=== PATIENT | male | born 1930 | race Caucasian/White ===

== ENCOUNTER 2017-03-14 15:36 | Emergency (ER) | payer MEDICARE, BC ==
[2017-03-14 15:59] VITALS: BP 113/73
--- NOTE | 2017-03-14 16:22 | EDM.PDOC ---
[id number]: SOB Time Seen by Provider: 03/14/17 16:05 Source of Information: Reports: Patient, Family History Limitations: Reports: No Limitations - History of Present Illness INITIAL COMMENTS - FREE TEXT/NARRATIVE: 87-year-old male was walking around the house for exercise today, the last lap he went very briskly, then went into the house and started to feel dizzy and woozy, and ultimately collapsed to the floor. He did not lose consciousness, the nurses found him sitting on the floor and he looked pale and somewhat diaphoretic. He was not complaining of pain but did have some mild shortness of breath. The nurses finally convinced him to go get checked out a couple hours later, he feels fine. He went into the clinic and was found to be in atrial fibrillation so they sent him to the emergency room. His rate is excellent. He has no nausea or vomiting. He is on aspirin and plavix, no history of atrial fibrillation in the past. Onset: Unknown/Unsure Severity: Moderate Associated Symptoms: Reports: Syncope, Weakness - Related Data Allergies Allergy/AdvReac Type Severity Reaction Status Date / Time No Known Allergies Allergy Verified 03/14/17 15:58 Home Meds: Home Meds Aspirin [Isabella Chewable Aspirin] 81 mg PO DAILY 07/11/14 [History] Carvedilol [Coreg] 12.5 mg PO BID 07/11/14 [History] Hydrochlorothiazide [Microzide] 12.5 mg PO DAILY 07/11/14 [History] Lisinopril [Zestril] 10 mg PO DAILY 07/11/14 [History] Multivitamin [Multi-Vitamin Daily] 1 each PO DAILY 07/11/14 [History] Nitroglycerin [Nitrostat] 0.4 mg SL ASDIRECTED 07/11/14 [History] metFORMIN [Glucophage] 1,000 mg PO BIDM 07/11/14 [History] Isosorbide Mononitrate [Imdur] 30 mg PO DAILY 04/06/16 [History] Lisinopril 20 mg PO BEDTIME 04/06/16 [History] Tamsulosin [Flomax] 0.4 mg PO DAILY 04/06/16 [History] atorvaSTATin [Lipitor] 40 mg PO BEDTIME 04/06/16 [History] Ibuprofen [Ibuprofen Ib] 800 mg PO Q6H 04/14/16 [History] Furosemide [Lasix] 40 mg PO DAILY 09/07/16 [History] Acetaminophen [Pain & Fever] 325 - 650 mg PO DAILY PRN 09/09/16 [History] Calcium Carbonate [Tums] 1,000 mg PO DAILY PRN 09/09/16 [History] Magnesium Hydroxide [Milk of Magnesia] 30 ml PO DAILY PRN 09/09/16 [History] Omeprazole 20 mg PO DAILY 09/09/16 [History] guaiFENesin [Robitussin] 100 mg PO Q6H PRN #240 ml 09/09/16 [Rx] Past Medical History HEENT History: Reports: Hard of Hearing, Impaired Vision Cardiovascular History: Reports: CAD, Heart Failure, High Cholesterol, Hypertension, [place], Stents Respiratory History: Reports: Pneumonia, Recurrent, SOB Genitourinary History: Reports: BPH, Prostate Disorder, Urinary Incontinence Neurological History: Reports: Concussion Other Neuro History: 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 Endocrine/Metabolic History: Reports: Diabetes, Type II Hematologic History: Reports: Blood Transfusion(s) Oncologic (Cancer) History: Reports: Prostate - Infectious Disease History Infectious Disease History: Reports: Chicken Pox, Measles, Shingles - Past Surgical History HEENT Surgical History: Reports: Cataract Surgery, Tonsillectomy Cardiovascular Surgical History: Reports: Coronary Artery Bypass, Coronary Artery Stent Social & Family History - Family History Family Medical History: Unobtainable - Tobacco Use Smoking Status *Q: Never Smoker Second Hand Smoke Exposure: No - Caffeine Use Caffeine Use: Reports: Coffee - Alcohol Use Days Per Week of Alcohol Use: 0 - Recreational Drug Use Recreational Drug Use: No ED ROS GENERAL - Review of Systems Review Of Systems: See Below Constitutional: Denies: Fever, Chills HEENT: Reports: No Symptoms Respiratory: Reports: No Symptoms Cardiovascular: Reports: No Symptoms GI/Abdominal: Reports: No Symptoms. Denies: Nausea, Vomiting : Reports: No Symptoms Skin: Reports: Pallor, Diaphoresis Neurological: Reports: Syncope Psychiatric: Reports: No Symptoms ED EXAM, GENERAL - Physical Exam Exam: See Below Exam Limited By: No Limitations General Appearance: Alert, No Apparent Distress Eye Exam: Bilateral Eye: EOMI Throat/Mouth: Normal Inspection Respiratory/Chest: No Respiratory Distress, Lungs Clear Cardiovascular: Irregularly Irregular. No: Bradycardia, Tachycardia GI/Abdominal: Soft, Non-Tender Extremities: Pedal Edema (Patient has just a trace of ankle edema, symmetric) Neurological: Alert, Oriented, No Motor/Sensory Deficits (Patient is hard of hearing) Psychiatric: Normal Affect, Normal Mood Skin Exam: Warm, Dry Course - Vital Signs Last Recorded V/S: Last Vital Signs Temp 96.4 F 03/14/17 15:55 Pulse 67 03/14/17 15:55 Resp 20 03/14/17 15:55 BP 113/73 03/14/17 15:55 Pulse Ox 98 03/14/17 15:55 - Re-Assessments/Exams Free Text/Narrative Re-Assessment/Exam: 03/14/17 16:22 EKG and labs were already done at the clinic, chest x-ray was not. This was ordered. 03/14/17 17:32 EKG and labs were reviewed, troponin was 0. Chest x-ray shows a very small amount of congestive heart failure along with cardiomegaly which is chronic. His atrial fib persisted but his rate continued to be well controlled. I discussed his symptoms with the patient and his family, and Dr. Waters of the hospitalist service and they requested to go home without any further treatment as long as he feels okay. He will continue his regular medications and return if worsening or concerns. Departure - Departure Time of Disposition: 17:48 Disposition: Home, Self-Care 01 Condition: Good Clinical Impression: Near syncope Atrial fibrillation Qualifiers: Atrial fibrillation type: unspecified Qualified Code(s): I48.91 - Unspecified atrial fibrillation - Discharge Information Instructions: Atrial Fibrillation, [id number] Referrals: Chino Hurst MD [Primary Care Provider] - Forms: ED Department Discharge Care Plan Goals: Continue your current medications. Avoid extra salt intake, and return any time if increasing shortness of breath, chest pain, or other concerning symptoms.
--- NOTE | 2017-03-15 08:35 | CR ---
Chest 2V HISTORY: dyspnea COMPARISON: 09/09/2016 FINDINGS: Mild cardiomegaly is similar to the prior exam. Old median sternotomy changes are noted. Infiltrates at the right lung base seen previously have improved. There is mild interstitial prominence. No ple ural fluid is seen. Severe pulmonary vasculature is borderline prominent. No new infiltrate is ident ified. IMPRESSION: Cardiomegaly with borderline pulmonary congestive changes. Recommend clinical correlation for signs of early CHF or fluid overload. Old median sternotomy changes are again noted.
== END 2017-03-14 17:48 | disposition home or self-care (01) ==
LOC: JP.ED 15:36
DX: R55 Syncope and collapse (principal); I48.91 Unspecified atrial fibrillation; I25.2 Old myocardial infarction; I10 Essential (primary) hypertension; E78.00 Pure hypercholesterolemia, unspecified; I11.0 Hypertensive heart disease with heart failure; I50.9 Heart failure, unspecified; I25.10 Atherosclerotic heart disease of native coronary artery without angina pectoris; E11.9 Type 2 diabetes mellitus without complications; Z85.46 Personal history of malignant neoplasm of prostate; Z95.1 Presence of aortocoronary bypass graft; Z95.5 Presence of coronary angioplasty implant and graft; Z98.49 Cataract extraction status, unspecified eye; Z98.890 Other specified postprocedural states; Z79.82 Long term (current) use of aspirin; Z79.84 Long term (current) use of oral hypoglycemic drugs; Z79.899 Other long term (current) drug therapy
CPT/HCPCS: 71020; 71020-26; 99284; 99285-25

== ENCOUNTER 2017-03-17 22:30 | Observation (INO) | payer MEDICARE, BC ==
--- NOTE | 2017-03-17 23:28 | EDM.PDOC ---
[id number]: SOB Time Seen by Provider: 03/17/17 22:40 Source of Information: Reports: Patient, Family History Limitations: Reports: No Limitations - History of Present Illness INITIAL COMMENTS - FREE TEXT/NARRATIVE: 87-year-old male who has had increasing shortness of breath, decrease activity tolerance over the past week and a half. He was seen 5 days ago in the clinic and ultimately sent over to the emergency room with newly diagnosed atrial fibrillation after a syncopal episode. His rate was well controlled, he was not in significant failure at that time and it was felt there was no need for hospitalization. 2 days later he was rechecked in the clinic and appeared to be worsening, he was hypotensive and had less activity tolerance. He was started on Coumadin, his Lasix was increased and his Lotensin decreased. Despite the medication changes he feels even more short of breath today, he is having increasing lower extremity edema and significant nocturnal dyspnea and orthopnea. Denies any pain. Onset: Gradual (Over the past week and a half) Severity: Moderate Worsens with: Reports: Other (Lying down or activity causes increased shortness of breath) Associated Symptoms: Reports: Malaise, Shortness of Breath, Weakness. Denies: Fever/Chills, Nausea/Vomiting Treatments HOME HEALTH AID: Reports: Other (see below) (Recent medication changes as per history of present illness) - Related Data Allergies Allergy/AdvReac Type Severity Reaction Status Date / Time No Known Allergies Allergy Verified 03/17/17 22:36 Home Meds: Home Meds Aspirin [Isabella Chewable Aspirin] 81 mg PO DAILY 07/11/14 [History] Hydrochlorothiazide [Microzide] 12.5 mg PO DAILY 07/11/14 [History] Multivitamin [Multi-Vitamin Daily] 1 each PO DAILY 07/11/14 [History] Nitroglycerin [Nitrostat] 0.4 mg SL ASDIRECTED 07/11/14 [History] metFORMIN [Glucophage] 1,000 mg PO BIDM 07/11/14 [History] Isosorbide Mononitrate [Imdur] 30 mg PO DAILY 04/06/16 [History] Lisinopril 20 mg PO DAILY 04/06/16 [History] Tamsulosin [Flomax] 0.4 mg PO DAILY 04/06/16 [History] atorvaSTATin [Lipitor] 40 mg PO BEDTIME 04/06/16 [History] Ibuprofen [Ibuprofen Ib] 400 mg PO Q6H 04/14/16 [History] Acetaminophen [Pain & Fever] 325 - 650 mg PO DAILY PRN 09/09/16 [History] Calcium Carbonate [Tums] 1,000 mg PO DAILY PRN 09/09/16 [History] Magnesium Hydroxide [Milk of Magnesia] 30 ml PO DAILY PRN 09/09/16 [History] Omeprazole 20 mg PO DAILY 09/09/16 [History] guaiFENesin [Robitussin] 100 mg PO Q6H PRN #240 ml 09/09/16 [Rx] Bacitracin/Neomycin/Polymyxin [Neosporin Oint] 1 applic TOP ASDIRECTED PRN 03/17 [History] Phenol [Cepastat] 1 montez MUCMEM ASDIRECTED PRN 03/17/17 [History] Warfarin [Coumadin] 5 mg PO DAILY 03/17/17 [History] diphenhydrAMINE [Benadryl] 25 mg PO Q4H PRN 03/17/17 [History] Carvedilol [Coreg] 6.25 mg PO BID #60 tablet 03/19/17 [Rx] Furosemide 40 mg PO DAILY #30 tablet 03/19/17 [Rx] Past Medical History HEENT History: Reports: Hard of Hearing, Impaired Vision Cardiovascular History: Reports: Afib, CAD, Heart Failure, High Cholesterol, Hypertension, [place], Stents Other Cardiovascular History: new afib this monday03/14/17 Respiratory History: Reports: Pneumonia, Recurrent, SOB Genitourinary History: Reports: BPH, Prostate Disorder, Urinary Incontinence Musculoskeletal History: Reports: Back Pain, Chronic Neurological History: Reports: Concussion, Head Trauma Other Neuro History: 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 Endocrine/Metabolic History: Reports: Diabetes, Type II Hematologic History: Reports: Blood Transfusion(s) Oncologic (Cancer) History: Reports: Prostate - Infectious Disease History Infectious Disease History: Reports: Chicken Pox, Shingles - Past Surgical History Head Surgeries/Procedures: Reports: Craniotomy HEENT Surgical History: Reports: Cataract Surgery, Tonsillectomy Cardiovascular Surgical History: Reports: Coronary Artery Bypass, Coronary Artery Stent Social & Family History - Family History Family Medical History: Unobtainable - Tobacco Use Smoking Status *Q: Never Smoker Second Hand Smoke Exposure: No - Caffeine Use Caffeine Use: Reports: Coffee - Alcohol Use Days Per Week of Alcohol Use: 0 - Recreational Drug Use Recreational Drug Use: No ED ROS GENERAL - Review of Systems Review Of Systems: See Below Constitutional: Reports: Malaise, Weakness. Denies: Fever, Chills HEENT: Reports: No Symptoms Respiratory: Reports: Shortness of Breath, Cough. Denies: Pleuritic Chest Pain Cardiovascular: Reports: Blood Pressure Problem (Blood pressure medications were recently changed due to hypotension), Syncope (Had an episode of syncope last week) Endocrine: Reports: Fatigue GI/Abdominal: Denies: Abdominal Pain, Nausea, Vomiting Skin: Reports: Pallor Neurological: Reports: Syncope, Weakness. Denies: Headache Psychiatric: Reports: Anxiety (Becomes anxious when he is short of breath) ED EXAM, GENERAL - Physical Exam Exam: See Below Exam Limited By: No Limitations General Appearance: Alert, Anxious, Mild Distress (Gets dyspneic just transferring from the chair to the exam bed) Head: Atraumatic Neck: Normal Inspection Respiratory/Chest: Decreased Breath Sounds (Marked decreased breath sounds at the bases especially on the left), Rales (Rales at the bases bilaterally) Cardiovascular: Irregularly Irregular GI/Abdominal: Soft, Non-Tender Extremities: Pedal Edema (Symmetric 1+ pedal edema at both ankles) Neurological: Alert, Oriented Psychiatric: Flat Affect Skin Exam: Warm, Dry, Pallor (Patient appears to have a small amount of pallor compared to his appearance 5 days ago) Course - Vital Signs Last Recorded V/S: Last Vital Signs Temp 95.8 F 03/19/17 07:02 Pulse 74 03/19/17 09:55 Resp 18 03/19/17 07:02 BP 133/83 03/19/17 09:55 Pulse Ox 95 03/19/17 07:02 - Orders/Labs/Meds Labs: Laboratory Tests 03/17/17 03/17/17 Range/Units 23:30 23:30 WBC 8.5 (4.5-11.0) K/uL RBC 3.99 L (4.30-5.90) M/uL Hgb 11.6 L (12.0-15.0) g/dL Hct 33.3 L (40.0-54.0) % MCV 84 (80-98) fL MCH 29 (27-31) pg MCHC 35 (32-36) % Plt Count 239 (150-400) K/uL Neut % (Auto) 71 H (36-66) % Lymph % (Auto) 19 L (24-44) % Camp % (Auto) 8 H (2-6) % Eos % (Auto) 2 (2-4) % Baso % (Auto) 0 (0-1) % Sodium 127 L (140-148) mmol/L Potassium 4.2 (3.6-5.2) mmol/L Chloride 92 L (100-108) mmol/L Carbon Dioxide 26 (21-32) mmol/L Anion Gap 13.2 (5.0-14.0) mmol/L BUN 21 H (7-18) mg/dL Creatinine 1.0 (0.8-1.3) mg/dL Est Cr Clr Drug Dosing 57.12 mL/min Estimated GFR (MDRD) > 60 (>60) Glucose 138 H (74-106) mg/dL Calcium 9.1 (8.5-10.1) mg/dL Meds: Medications Discontinued Medications Generic Name Dose Route Start Last Admin Trade Name Freq PRN Reason Stop Dose Admin Aspirin 81 mg 03/18/17 09:00 03/19/17 08:27 Aspirin PO 81 mg DAILY ERLIN Administration Atorvastatin Calcium 40 mg 03/18/17 21:00 03/18/17 21:36 Lipitor PO 40 mg BEDTIME ERLIN Administration Carvedilol 12.5 mg 03/18/17 09:00 03/18/17 09:22 Coreg PO 12.5 mg BID ERLIN Administration Carvedilol 6.25 mg 03/19/17 09:00 03/19/17 09:55 Coreg PO 6.25 mg BID ERLIN Administration Dextrose 15 gm 03/18/17 12:11 Glutose 15 PO ONETIME PRN Hypoglycemia Dextrose/Water 50 ml 03/18/17 12:11 Dextrose 50% In Water IV ONETIME PRN Hypoglycemia Furosemide 40 mg 03/18/17 00:10 03/18/17 00:28 Lasix IVPUSH 03/18/17 00:11 40 mg ONETIME ONE Administration Furosemide 20 mg 03/18/17 09:00 03/18/17 09:23 Lasix IVPUSH 03/18/17 09:01 20 mg NOW ONE Administration Furosemide 20 mg 03/18/17 19:00 03/19/17 07:37 Lasix IVPUSH 20 mg Q12H ERLIN Administration Insulin Aspart 0 unit 03/18/17 12:15 03/19/17 07:59 Novolog SUBCUT 1 units ASDIRECTED PRN Administration LOW DOSE SLIDING SCALE Protocol Isosorbide Mononitrate 30 mg 03/18/17 09:00 03/19/17 08:28 Imdur PO 30 mg DAILY ERLIN Administration Lisinopril 20 mg 03/18/17 09:00 03/19/17 08:28 Prinivil PO 20 mg DAILY ERLIN Administration Melatonin 9 mg 03/18/17 21:00 03/18/17 21:35 Melatonin PO 9 mg BEDTIME ERLIN Administration Metformin HCl 1,000 mg 03/18/17 12:15 03/19/17 08:27 Glucophage PO 1,000 mg BIDM ERLIN Administration Nitroglycerin 0.4 mg 03/18/17 00:45 Nitrostat SL ASDIRECTED ERLIN Pantoprazole Sodium 40 mg 03/18/17 07:30 03/19/17 07:37 Protonix PO 40 mg ACBREAKFAST ERLIN Administration Potassium Chloride 20 meq 03/18/17 12:15 03/19/17 07:39 Klor-Con M20 PO 20 meq BIDMEALS ERLIN Administration Sodium Chloride 10 ml 03/17/17 23:36 03/18/17 00:29 Saline Flush FLUSH 10 ml ASDIRECTED PRN Administration Keep Vein Open Sodium Chloride 10 ml 03/18/17 00:22 03/18/17 00:29 Saline Flush FLUSH 10 ml ASDIRECTED PRN Administration Keep Vein Open Tamsulosin HCl 0.4 mg 03/18/17 09:00 03/19/17 08:27 Flomax PO 0.4 mg DAILY ERLIN Administration Warfarin Sodium 5 mg 03/18/17 13:00 03/18/17 13:02 Coumadin PO 5 mg DAILY@1300 ERLIN Administration - Re-Assessments/Exams Free Text/Narrative Re-Assessment/Exam: 03/17/17 23:28 monitor tech continues to show atrial fibrillation with a rate between 60 and 75. A two-view chest x-ray was repeated, CBC and BMP were obtained. A saline lock IV was placed. He was also given supplemental O2 as his O2 saturations tended to drop into the 80s with any activity 03/18/17 00:08 Chest x-ray does not appear to be significantly different than last Monday, possibly slightly larger cardiomegaly and slight increase in congestive heart failure, certainly not improved. A saline lock was placed and the patient was given 40 mg of Lasix IV. I did find a report from his echocardiogram in August , he said ejection fraction was severely reduced at that time, he likely went into atrial fibrillation in the last few weeks and is not tolerating the rhythm. Departure - Departure Time of Disposition: 00:01 Disposition: Admitted As Inpatient 66 Reason for Transfer *Q: Other Condition: Fair Clinical Impression: Congestive heart failure Qualifiers: Congestive heart failure type: combined Congestive heart failure chronicity: acute on chronic Qualified Code(s): I50.43 - Acute on chronic combined systolic (congestive) and diastolic (congestive) heart failure Atrial fibrillation Qualifiers: Atrial fibrillation type: unspecified Qualified Code(s): I48.91 - Unspecified atrial fibrillation
[2017-03-17] MEDS ORDERED: Sodium Chloride 0.9% 10 ML Syringe FLUSH PRN (23:36)
[2017-03-18] MEDS ORDERED: Furosemide 40 MG/4 ML VIAL IVPUSH ONE (00:10)
[2017-03-18] MEDS ORDERED: Sodium Chloride 0.9% 10 ML Syringe FLUSH PRN (00:22)
[2017-03-18] MEDS ORDERED: Nitroglycerin 0.4 MG Tab.SL SL SCH (00:45)
[2017-03-18] MEDS ORDERED: Furosemide 20 MG/2 ML VIAL IVPUSH ONE (09:00)
[2017-03-18] MEDS ORDERED: Carvedilol 12.5 MG Tab PO SCH (09:00)
[2017-03-18] MEDS: Pantoprazole 40 MG Tab.CR PO SCH (09:21)
[2017-03-18] MEDS: Aspirin 81 MG Tab.Chew PO SCH (09:22)
[2017-03-18] MEDS: Isosorbide Mononitrate 30 MG Tab.ER PO SCH (09:22)
[2017-03-18] MEDS: Tamsulosin 0.4 MG Cap.ER PO SCH (09:22)
[2017-03-18] MEDS: Lisinopril 20 MG Tab PO SCH (09:23)
[2017-03-18] MEDS ORDERED: Glucose Gel 15 GM in 37.5 GM Tube PO PRN (12:11)
[2017-03-18] MEDS ORDERED: 50% Dextrose in Water 50 ML Syringe IV PRN (12:11)
--- NOTE | 2017-03-18 12:21 | PCM.PN ---
- General Info Date of Service: 03/18/17 - Review of Systems General: Reports: No Symptoms Pulmonary: Reports: No Symptoms Cardiovascular: Reports: No Symptoms Gastrointestinal: Reports: No Symptoms Systems Review Comment:: Mr. Hernandez is an 87-year-old gentleman with a known history of congestive heart failure and estimated left ventricular ejection fraction of 25-30%. Over the past week has been experiencing symptoms of increased shortness of breath including orthopnea and PND. He is also been found to have new onset of atrial fibrillation with controlled ventricular response. Despite addition of diuretics to regimen his symptoms have not improved significantly so he presented to the emergency department late last night. He is receiving 40 mg of IV Lasix last night and 20 mg IV this morning. He feels significantly improved and denies any current symptoms of shortness of breath. - Patient Data Vitals - Most Recent: Last Vital Signs Temp 96.6 F 03/18/17 10:51 Pulse 64 03/18/17 10:51 Resp 17 03/18/17 10:51 BP 95/60 03/18/17 10:51 Pulse Ox 96 03/18/17 10:51 Weight - Most Recent: 192 lb 7 oz I&O - Last 24 Hours: Intake & Output 03/17/17 03/18/17 03/18/17 22:59 06:59 14:59 Intake Total 0 460 Output Total 800 Balance -800 460 Lab Results Last 24 Hours: Laboratory Results - last 24 hr 03/18/17 03/18/17 03/18/17 Range/Units 05:04 08:37 08:37 PT 11.7 (9.5-12.0) sec INR 1.09 (0.80-1.20) Sodium 130 L (140-148) mmol/L Potassium 3.9 (3.6-5.2) mmol/L Chloride 94 L (100-108) mmol/L Carbon Dioxide 29 (21-32) mmol/L Anion Gap 10.9 (5.0-14.0) mmol/L BUN 19 H (7-18) mg/dL Creatinine 1.0 (0.8-1.3) mg/dL Est Cr Clr Drug Dosing 57.12 mL/min Estimated GFR (MDRD) > 60 (>60) Glucose 146 H (74-106) mg/dL Calcium 8.9 (8.5-10.1) mg/dL Magnesium 1.8 (1.8-2.4) mg/dL Med Orders - Current: Current Medications Aspirin (Aspirin) 81 mg PO DAILY [facility] Last Admin: 03/18/17 09:22 Dose: 81 mg Atorvastatin Calcium (Lipitor) 40 mg PO BEDTIME [facility] Carvedilol (Coreg) 12.5 mg PO BID [facility] Last Admin: 03/18/17 09:22 Dose: 12.5 mg Dextrose (Glutose 15) 15 gm PO ONETIME PRN PRN Reason: Hypoglycemia Dextrose/Water (Dextrose 50% In Water) 50 ml IV ONETIME PRN PRN Reason: Hypoglycemia Insulin Aspart (Novolog) 0 unit SUBCUT ASDIRECTED [facility] PRN Reason: Protocol Isosorbide Mononitrate (Imdur) 30 mg PO DAILY [facility] Last Admin: 03/18/17 09:22 Dose: 30 mg Lisinopril (Prinivil) 20 mg PO DAILY [facility] Last Admin: 03/18/17 09:23 Dose: 20 mg Nitroglycerin (Nitrostat) 0.4 mg SL ASDIRECTED [facility] Non-Formulary Medication (Metformin [Glucophage]) [facility] [place] Pantoprazole Sodium (Protonix) 40 mg PO ACBREAKFAST [facility] Last Admin: 03/18/17 09:21 Dose: 40 mg Potassium Chloride (Klor-Con M20) 20 meq PO BID [facility] Sodium Chloride (Saline Flush) 10 ml FLUSH ASDIRECTED PRN PRN Reason: Keep Vein Open Last Admin: 03/18/17 00:29 Dose: 10 ml Tamsulosin HCl (Flomax) 0.4 mg PO DAILY [facility] Last Admin: 03/18/17 09:22 Dose: 0.4 mg Warfarin Sodium (Coumadin) 5 mg PO DAILY@1300 [facility] Discontinued Medications Furosemide (Lasix) 40 mg IVPUSH ONETIME ONE Stop: 03/18/17 00:11 Last Admin: 03/18/17 00:28 Dose: 40 mg Furosemide (Lasix) 20 mg IVPUSH NOW ONE Stop: 03/18/17 09:01 Last Admin: 03/18/17 09:23 Dose: 20 mg Sodium Chloride (Saline Flush) 10 ml FLUSH ASDIRECTED PRN PRN Reason: Keep Vein Open Last Admin: 03/18/17 00:29 Dose: 10 ml - Exam Quality Assessment: DVT Prophylaxis General: Alert, Oriented, No Acute Distress Lungs: Clear to Auscultation, Normal Respiratory Effort Cardiovascular: Regular Rate, No Murmurs, Irregular Rhythm GI/Abdominal Exam: Normal Bowel Sounds, Soft, Non-Tender, No Distention Extremities: Normal Inspection, No Pedal Edema Skin: Warm, Dry, Intact - Problem List Review Problem List Initiated/Reviewed/Updated: Yes - My Orders Last 24 Hours: My Active Orders 03/18/17 12:11 Blood Glucose Check, Bedside [RC] QIDACANDBED Dextrose 50% in Water 50 ml IV ONETIME PRN Dextrose [Glutose 15] 15 gm PO ONETIME PRN 03/18/17 12:12 Communication Order [RC] ASDIRECTED Diabetes Education [RC] Click to Edit Notify Provider [RC] PRN 03/18/17 12:15 Insulin Aspart [NovoLOG] See Protocol SUBCUT ASDIRECTED Potassium Chloride [Klor-Con M20] 20 meq PO BID metFORMIN [Glucophage] 1,000 mg PO BIDM 03/18/17 16:30 GLUCOSE POC LAB TO COLLECT [POC] QIDACANDBED 03/18/17 19:00 Furosemide [Lasix] 20 mg IVPUSH Q12H 03/18/17 21:00 GLUCOSE POC LAB TO COLLECT [POC] QIDACANDBED 03/19/17 05:00 BASIC METABOLIC PANEL,BMP [CHEM] Timed INR,PT,PROTHROMBIN TIME [COAG] Timed 03/19/17 07:30 GLUCOSE POC LAB TO COLLECT [POC] QIDACANDBED 03/19/17 11:30 GLUCOSE POC LAB TO COLLECT [POC] QIDACANDBED 03/19/17 16:30 GLUCOSE POC LAB TO COLLECT [POC] QIDACANDBED 03/19/17 21:00 GLUCOSE POC LAB TO COLLECT [POC] QIDACANDBED 03/20/17 07:30 GLUCOSE POC LAB TO COLLECT [POC] QIDACANDBED 03/20/17 11:30 GLUCOSE POC LAB TO COLLECT [POC] QIDACANDBED 03/20/17 16:30 GLUCOSE POC LAB TO COLLECT [POC] QIDACANDBED 03/20/17 21:00 GLUCOSE POC LAB TO COLLECT [POC] QIDACANDBED 03/21/17 07:30 GLUCOSE POC LAB TO COLLECT [POC] QIDACANDBED 03/21/17 11:30 GLUCOSE POC LAB TO COLLECT [POC] QIDACANDBED 03/21/17 16:30 GLUCOSE POC LAB TO COLLECT [POC] QIDACANDBED 03/21/17 21:00 GLUCOSE POC LAB TO COLLECT [POC] QIDACANDBED 03/22/17 07:30 GLUCOSE POC LAB TO COLLECT [POC] QIDACANDBED 03/22/17 11:30 GLUCOSE POC LAB TO COLLECT [POC] QIDACANDBED 03/22/17 16:30 GLUCOSE POC LAB TO COLLECT [POC] QIDACANDBED 03/22/17 21:00 GLUCOSE POC LAB TO COLLECT [POC] QIDACANDBED 03/23/17 07:30 GLUCOSE POC LAB TO COLLECT [POC] QIDACANDBED 03/23/17 11:30 GLUCOSE POC LAB TO COLLECT [POC] QIDACANDBED 03/23/17 16:30 GLUCOSE POC LAB TO COLLECT [POC] QIDACANDBED 03/23/17 21:00 GLUCOSE POC LAB TO COLLECT [POC] QIDACANDBED - Plan Plan:: ASSESSMENT AND PLAN CONGESTIVE HEART FAILURE-with pulmonary edema causing increased shortness of breath. Chest x-ray shows evidence of pulmonary edema, no evidence of underlying infection. Previous echocardiogram done in approximately 8 months ago showed severely decreased left ventricular function with estimated ejection fraction of 25-30%. Unfortunately echocardiogram will not be available during this admission but can be followed up on an outpatient basis. -2 g sodium diet -Continue beta janell and PRASAD inhibitor therapy -Lasix 20 mg IV every 12 hours ATRIAL FIBRILLATION WITH CONTROLLED VENTRICULAR RESPONSE-new diagnosis -No additional rate slowing medication required -Oral anticoagulation with warfarin 5 mg daily -INR in a.m. CORONARY ARTERY DISEASE-currently asymptomatic -Continue outpatient medical regimen TYPE 2 DIABETES MELLITUS -Metformin 1 g by mouth twice a day -4 times a day glucometers -Low-dose sliding scale NovoLog MAINTENANCE ISSUES -DVT prophylaxis; Lovenox 40 mg subcutaneous daily -GI prophylaxis; not indicated -Hernandez catheter; not indicated -Nutrition; 2 g sodium, consistent carb diet -Nicotine dependence; not required CODE STATUS-DNR/DNI ADMISSION STATUS-patient will be admitted to inpatient status, expect at least a 2 night hospital stay for evaluation and management of problems as outlined above. At the time of this admission I do not reasonably expected evaluation and management of this problem will require more than a 96 hour hospital stay. DISPOSITION-anticipate discharge back to assisted living tomorrow PRIMARY CARE PROVIDER-Dr. Hurst
[2017-03-18] MEDS: metFORMIN 500 MG Tab PO SCH ×2 (13:00→17:20)
[2017-03-18] MEDS ORDERED: Warfarin 5 MG Tab PO SCH (13:00)
[2017-03-18] MEDS: Potassium Chloride 20 MEQ Tab.ER PO SCH ×2 (13:01→17:20)
[2017-03-18] MEDS: Insulin Aspart 100 Units/ML 3 ML Pen SUBCUT PRN (17:27)
[2017-03-18] MEDS: Furosemide 20 MG/2 ML VIAL IVPUSH SCH (18:21)
[2017-03-18] MEDS ORDERED: atorvaSTATin 20 MG Tab PO SCH (21:00)
[2017-03-18] MEDS ORDERED: Melatonin 3 MG Tab PO SCH (21:00)
[2017-03-19 07:03] VITALS: BP 133/83
[2017-03-19] MEDS: Furosemide 20 MG/2 ML VIAL IVPUSH SCH (07:37)
[2017-03-19] MEDS: Pantoprazole 40 MG Tab.CR PO SCH (07:37)
[2017-03-19] MEDS: Potassium Chloride 20 MEQ Tab.ER PO SCH (07:39)
[2017-03-19] MEDS: Insulin Aspart 100 Units/ML 3 ML Pen SUBCUT PRN (07:59)
[2017-03-19] MEDS: metFORMIN 500 MG Tab PO SCH (08:27)
[2017-03-19] MEDS: Tamsulosin 0.4 MG Cap.ER PO SCH (08:27)
[2017-03-19] MEDS: Aspirin 81 MG Tab.Chew PO SCH (08:27)
[2017-03-19] MEDS: Lisinopril 20 MG Tab PO SCH (08:28)
[2017-03-19] MEDS: Isosorbide Mononitrate 30 MG Tab.ER PO SCH (08:28)
--- NOTE | 2017-03-19 08:59 | PCM.DCSUM1 ---
Discharge Summary - Hospital Course Brief History: Mr. Hernandez is an 87-year-old gentleman who was admitted to observation status through the emergency department with increased shortness of breath secondary to pulmonary edema and congestive heart failure. - Discharge Data Discharge Date: 03/19/17 Discharge Disposition: DC/Tfer to Other 70 Condition: Fair - Discharge Diagnosis/Problem(s) (1) Atrial fibrillation SNOMED Code(s): 70737070 ICD Code: I48.91 - UNSPECIFIED ATRIAL FIBRILLATION Status: Acute Current Visit: Yes Qualifiers: Atrial fibrillation type: unspecified Qualified Code(s): I48.91 - Unspecified atrial fibrillation (2) Congestive heart failure SNOMED Code(s): 21456009 ICD Code: I50.9 - HEART FAILURE, UNSPECIFIED Status: Chronic Priority: High Current Visit: Yes Qualifiers: Congestive heart failure type: combined Congestive heart failure chronicity : acute on chronic Qualified Code(s): I50.43 - Acute on chronic combined systolic (congestive) and diastolic (congestive) heart failure (3) Diabetes mellitus type 2 in nonobese SNOMED Code(s): 334268461 ICD Code: E11.9 - TYPE 2 DIABETES MELLITUS WITHOUT COMPLICATIONS Status: Chronic Current Visit: No - Patient Summary/Data Hospital Course: Mr. Hernandez is an 87-year-old gentleman with a known history of congestive heart failure, previously documented ejection fraction of 25-30%. Over the past week prior to admission he is been diagnosed with new atrial fibrillation, rate controlled, and duration unknown. He had experienced increased shortness of breath and had been started on diuretic therapy, despite this had not noted significant improvement. Chest x-ray obtained in the emergency department showed evidence of pulmonary edema. Troponin level was within normal range and there were no acute ST segment changes noted on the EKG. He was given 40 mg of IV Lasix in the emergency department and had good diuresis and improvement in symptoms. He was admitted to the hospital on observation status for further diuresis and management. During the hospital stay was noted to have bradycardia with heart rates into the 50s his dose of Coreg was decreased from 12.5 mg twice daily to 6.25 mg twice daily. He received IV Lasix every 12 hours and by the time of discharge was feeling significantly improved. He will be discharged home in the lower dose of Coreg, his dose of furosemide will be increased to 80 mg daily. Activity will be as tolerated and he will be on a low-sodium consistent carb diet. Follow-up appointment will be scheduled with his primary care provider Dr. Hurst within one week, BMP should be obtained at the time of follow-up appointment. He will remain on oral anticoagulation with warfarin, INR is still subtherapeutic. Follow-up INR level will be ordered for tomorrow March 20. - Patient Instructions Diet: Low Sodium, Diabetic Diet Activity: As Tolerated Other/Special Instructions: Please schedule a follow-up appointment with Dr. Hurst within one week. BMP should be obtained at the time of follow-up appointment. Please obtain an INR level tomorrow March 20. - Discharge Plan Prescriptions/Med Rec: Carvedilol [Coreg] 6.25 mg PO BID #60 tablet Furosemide 40 mg PO DAILY #30 tablet Home Medications: Home Meds Aspirin [Isabella Chewable Aspirin] 81 mg PO DAILY 07/11/14 [History] Hydrochlorothiazide [Microzide] 12.5 mg PO DAILY 07/11/14 [History] Multivitamin [Multi-Vitamin Daily] 1 each PO DAILY 07/11/14 [History] Nitroglycerin [Nitrostat] 0.4 mg SL ASDIRECTED 07/11/14 [History] metFORMIN [Glucophage] 1,000 mg PO BIDM 07/11/14 [History] Isosorbide Mononitrate [Imdur] 30 mg PO DAILY 04/06/16 [History] Lisinopril 20 mg PO DAILY 04/06/16 [History] Tamsulosin [Flomax] 0.4 mg PO DAILY 04/06/16 [History] atorvaSTATin [Lipitor] 40 mg PO BEDTIME 04/06/16 [History] Ibuprofen [Ibuprofen Ib] 400 mg PO Q6H 04/14/16 [History] Acetaminophen [Pain & Fever] 325 - 650 mg PO DAILY PRN 09/09/16 [History] Calcium Carbonate [Tums] 1,000 mg PO DAILY PRN 09/09/16 [History] Magnesium Hydroxide [Milk of Magnesia] 30 ml PO DAILY PRN 09/09/16 [History] Omeprazole 20 mg PO DAILY 09/09/16 [History] guaiFENesin [Robitussin] 100 mg PO Q6H PRN #240 ml 09/09/16 [Rx] Bacitracin/Neomycin/Polymyxin [Neosporin Oint] 1 applic TOP ASDIRECTED PRN 03/17 [History] Phenol [Cepastat] 1 montez MUCMEM ASDIRECTED PRN 03/17/17 [History] Warfarin [Coumadin] 5 mg PO DAILY 03/17/17 [History] diphenhydrAMINE [Benadryl] 25 mg PO Q4H PRN 03/17/17 [History] Carvedilol [Coreg] 6.25 mg PO BID #60 tablet 03/19/17 [Rx] Furosemide 40 mg PO DAILY #30 tablet 03/19/17 [Rx] Referrals: Chino Hurst MD [Primary Care Provider] - - Patient Data Vitals - Most Recent: Last Vital Signs Temp 95.8 F 03/19/17 07:02 Pulse 74 03/19/17 07:02 Resp 18 03/19/17 07:02 BP 133/83 03/19/17 08:28 Pulse Ox 95 03/19/17 07:02 Weight - Most Recent: 192 lb 7 oz I&O - Last 24 hours: Intake & Output 03/18/17 03/19/17 03/19/17 22:59 06:59 14:59 Intake Total 360 Output Total 600 400 Balance -240 -400 Lab Results - Last 24 hrs: Laboratory Results - last 24 hr 03/18/17 03/18/17 03/19/17 Range/Units 08:37 08:37 05:58 PT 14.4 H (9.5-12.0) sec INR 1.33 H (0.80-1.20) Sodium 130 L (140-148) mmol/L Potassium 3.9 (3.6-5.2) mmol/L Chloride 94 L (100-108) mmol/L Carbon Dioxide 29 (21-32) mmol/L Anion Gap 10.9 (5.0-14.0) mmol/L BUN 19 H (7-18) mg/dL Creatinine 1.0 (0.8-1.3) mg/dL Est Cr Clr Drug Dosing 57.12 mL/min Estimated GFR (MDRD) > 60 (>60) Glucose 146 H (74-106) mg/dL Calcium 8.9 (8.5-10.1) mg/dL Magnesium 1.8 (1.8-2.4) mg/dL 03/19/17 Range/Units 05:58 PT (9.5-12.0) sec INR (0.80-1.20) Sodium 131 L (140-148) mmol/L Potassium 4.3 (3.6-5.2) mmol/L Chloride 97 L (100-108) mmol/L Carbon Dioxide 27 (21-32) mmol/L Anion Gap 11.3 (5.0-14.0) mmol/L BUN 21 H (7-18) mg/dL Creatinine 0.9 (0.8-1.3) mg/dL Est Cr Clr Drug Dosing 63.47 mL/min Estimated GFR (MDRD) > 60 (>60) Glucose 126 H (74-106) mg/dL Calcium 8.4 L (8.5-10.1) mg/dL Magnesium (1.8-2.4) mg/dL Med Orders - Current: Current Medications Aspirin (Aspirin) 81 mg PO DAILY [facility] Last Admin: 03/19/17 08:27 Dose: 81 mg Atorvastatin Calcium (Lipitor) 40 mg PO BEDTIME [facility] Last Admin: 03/18/17 21:36 Dose: 40 mg Carvedilol (Coreg) 6.25 mg PO BID [facility] Dextrose (Glutose 15) 15 gm PO ONETIME PRN PRN Reason: Hypoglycemia Dextrose/Water (Dextrose 50% In Water) 50 ml IV ONETIME PRN PRN Reason: Hypoglycemia Furosemide (Lasix) 20 mg IVPUSH Q12H [facility] Last Admin: 03/19/17 07:37 Dose: 20 mg Insulin Aspart (Novolog) 0 unit SUBCUT ASDIRECTED PRN; Protocol PRN Reason: LOW DOSE SLIDING SCALE Last Admin: 03/19/17 07:59 Dose: 1 units Isosorbide Mononitrate (Imdur) 30 mg PO DAILY [facility] Last Admin: 03/19/17 08:28 Dose: 30 mg Lisinopril (Prinivil) 20 mg PO DAILY [facility] Last Admin: 03/19/17 08:28 Dose: 20 mg Melatonin (Melatonin) 9 mg PO BEDTIME [facility] Last Admin: 03/18/17 21:35 Dose: 9 mg [facility] Last Admin: 03/19/17 08:27 Dose: 1,000 mg Nitroglycerin (Nitrostat) 0.4 mg SL ASDIRECTED [facility] Pantoprazole Sodium (Protonix) 40 mg PO ACBREAKFAST [facility] Last Admin: 03/19/17 07:37 Dose: 40 mg Potassium Chloride (Klor-Con M20) 20 meq PO BIDMEALS [facility] Last Admin: 03/19/17 07:39 Dose: 20 meq Sodium Chloride (Saline Flush) 10 ml FLUSH ASDIRECTED PRN PRN Reason: Keep Vein Open Last Admin: 03/18/17 00:29 Dose: 10 ml Tamsulosin HCl (Flomax) 0.4 mg PO DAILY [facility] Last Admin: 03/19/17 08:27 Dose: 0.4 mg Warfarin Sodium (Coumadin) 5 mg PO DAILY@1300 [facility] Last Admin: 03/18/17 13:02 Dose: 5 mg Discontinued Medications Carvedilol (Coreg) 12.5 mg PO BID [facility] Last Admin: 03/18/17 09:22 Dose: 12.5 mg Furosemide (Lasix) 40 mg IVPUSH ONETIME ONE Stop: 03/18/17 00:11 Last Admin: 03/18/17 00:28 Dose: 40 mg Furosemide (Lasix) 20 mg IVPUSH NOW ONE Stop: 03/18/17 09:01 Last Admin: 03/18/17 09:23 Dose: 20 mg Sodium Chloride (Saline Flush) 10 ml FLUSH ASDIRECTED PRN PRN Reason: Keep Vein Open Last Admin: 03/18/17 00:29 Dose: 10 ml *Q Meaningful Use (DIS) - VTE *Q VTE Criteria *Q: - Stroke *Q Stroke Criteria *Q: - AMI *Q AMI Criteria *Q:
[2017-03-19] MEDS ORDERED: Carvedilol 6.25 MG Tab PO SCH (09:00)
--- NOTE | 2017-03-20 08:21 | CR ---
Chest 2V INDICATION: dyspnea COMPARISON: 10/30/2010 FINDINGS: Two views. Cardiomegaly increased. Sternotomy wires. Vascular congestion. Infiltrate ri ght lower lobe. Small right pleural effusion. IMPRESSION: CHF. Infiltrate right lower lobe.
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
== END 2017-03-19 10:30 | disposition other institution (70) ==
LOC: JP.ED 22:30 → JP.MS 03-18 00:22
PROVIDERS: ADMIT Family Medicine; ATTEND Hospitalist
DX: I48.91 Unspecified atrial fibrillation (principal); I50.43 Acute on chronic combined systolic (congestive) and diastolic (congestive) heart failure; E11.9 Type 2 diabetes mellitus without complications; I25.10 Atherosclerotic heart disease of native coronary artery without angina pectoris; I25.2 Old myocardial infarction; N40.0 Benign prostatic hyperplasia without lower urinary tract symptoms; I10 Essential (primary) hypertension; E78.00 Pure hypercholesterolemia, unspecified; Z79.82 Long term (current) use of aspirin; Z79.84 Long term (current) use of oral hypoglycemic drugs; Z79.899 Other long term (current) drug therapy; Z79.01 Long term (current) use of anticoagulants; Z95.1 Presence of aortocoronary bypass graft; Z95.5 Presence of coronary angioplasty implant and graft; Z98.890 Other specified postprocedural states
CPT/HCPCS: 36415; 71020; 80048; 82962; 83735; 85025; 85610; 96374; 96376; 99285; A9270; G0378; J1940; J7050